=== PATIENT | female | born 2000 | race Caucasian/White ===

== ENCOUNTER 2020-10-23 05:29 | Emergency (ER) | payer OTHER ==
[~2020-10-23 05:29] MED LIST: ZOFRAN8 MG PO
[2020-10-23 06:06] LABS: BASOPHIL 0.3 % (0-2); EOSINOPHIL 1.3 & (0-5); HGB 15.1 g/dl (12.5-16.0); LYMPHOCYTE 59.9 % (15-48); MCH 30.6 pg (25.0-31.0); MCHC 34.3 g/dL (32.0-36.0); MCV 89.2 fL (78.0-100.0); MONOCYTE 10.4 % (0-12); MPV 9.7 fL (6.0-9.5); NEUTROPHIL 28.1 % (41-80); PLT 257 K/uL (150-400); RBC 4.93 M/uL (4.20-5.40); RDW 11.8 % (11.5-14.0); WBC 3.94 K/uL (4.0-10.5)
[2020-10-23 06:10] LABS: BILIRUBIN NEGATIVE (NEGATIVE); BLOOD NEGATIVE Ery/uL (NEGATIVE); CLARITY CLEAR (CLEAR); COLOR YELLOW (YELLOW); GLUCOSE (U) NORMAL (NORMAL); LEUKOCYTES NEGATIVE Leu/uL (NEGATIVE); NITRITE NEGATIVE (NEGATIVE); PROTEIN TRACE (LOW) mg/dL (NEGATIVE); SPECIFIC GRAVITY 1.025 (1.001-1.030); UROBILINOGEN 0.2 mg/dL (0.2-1.0); pH 5.5 (5.0-9.0)
[2020-10-23 06:11] LABS: AMPHETAMINES NEGATIVE (NEGATIVE); BARBITURATES NEGATIVE (NEGATIVE); ECSTASY (MDMA) NEGATIVE (NEGATIVE); MARIJUANA (THC) NEGATIVE (NEGATIVE); METHADONE NEGATIVE (NEGATIVE); OPIATES NEGATIVE (NEGATIVE); OXYCODONE NEGATIVE (NEGATIVE)
[2020-10-23 06:30] LABS: ACETAMINOPHEN (TYLENOL) 24.6 ug/mL (10.0-30.0); ALBUMIN 4.2 g/dL (3.4-5.0); ALKALINE PHOSHATASE 75 U/L (46-116); ALT 21 U/L (14-59); AST 20 U/L (15-37); BILIRUBIN - TOTAL 0.6 mg/dL (0.2-1.0); BUN 11 mg/dL (7-18); BUN/CREAT RATIO (CALC) 15.7 RATIO; CHLORIDE 104 mmol/L (98-107); CO2 (BICARBONATE) 28 mmol/L (21-32); GLUCOSE 109 mg/dL (74-106); POTASSIUM 3.7 mmol/L (3.5-5.1); TOTAL PROTEIN 8.2 g/dL (6.4-8.2)
[2020-10-23 07:10] LABS: INR 1.05 (0.9-1.2); PROTHROMBIN TIME 13.1 SECONDS (11.8-13.4); PTT 29.1 SECONDS (24.4-34.7)
== END 2020-10-23 22:03 | disposition other institution (70) ==
LOC: FER 05:29
PROVIDERS: Emergency Medicine Emergency Medical Services
DX: T39.1X2A Poisoning by 4-Aminophenol derivatives, intentional self-harm, initial encounter (principal); R11.2 Nausea with vomiting, unspecified; F32.9 Major depressive disorder, single episode, unspecified; U07.1 COVID-19; Z79.3 Long term (current) use of hormonal contraceptives; Z90.09 Acquired absence of other part of head and neck; Z79.899 Other long term (current) drug therapy; Y92.9 Unspecified place or not applicable
CPT/HCPCS: 36415; 74018; 80053; 80305; 81003; 84443; 85025; 85610; 85730; 93005; G0480; U0002